=== PATIENT | female | born 1940 | race Caucasian/White ===

== ENCOUNTER 2017-07-15 12:57 | Outpatient (CLI) | payer MEDICARE, OTHER ==
--- NOTE | 2017-07-15 16:44 | Ultrasound Report ---
PELVIC ULTRASOUND: 07/15/2017 CLINICAL INDICATION: Left-sided pain. Transabdominal pelvic ultrasound performed for global evaluation. Transvaginal pelvic ultrasound performed for detailed evaluation. Real-time scanning performed and static images obtained. FINDINGS: The uterus is anteverted, measuring 6.6 x 3.0 x 1.9 cm. The endometrium is thickened for a postmenopausal patient, measuring 11 mm. A complex nabothian cyst is noted in the cervix. The ovaries appear unremarkable, each measuring 1.6 x 1.3 x 1.0 cm. No free fluid is present. IMPRESSION: THICKENED ENDOMETRIUM FOR A POSTMENOPAUSAL PATIENT. CORRELATION WITH POSTMENOPAUSAL BLEEDING IS RECOMMENDED. COMPLEX NABOTHIAN CYST. TD: 07/15/2017 16:43 ZOE
== END 2017-07-15 12:58 | disposition home or self-care (01) ==
LOC: DI 12:57
PROVIDERS: ATTEND Family Medicine
DX: R10.9 Unspecified abdominal pain (principal); N88.8 Other specified noninflammatory disorders of cervix uteri; Z78.0 Asymptomatic menopausal state
CPT/HCPCS: 76830; 76856

== ENCOUNTER 2017-07-21 10:39 | Outpatient (CLI) | payer MEDICARE, OTHER ==
[2017-07-21 19:16] LABS: BASOPHILS % (AUTO) 0.8 %; EOSINOPHILS # (AUTO) 0.2 10^3/uL (0.0-0.7); LYMPHOCYTES % (AUTO) 34.8 %; MEAN CORPUSCULAR HEMOGLOBIN 28.5 pg (27.0-31.0); MEAN CORPUSCULAR HGB CONC 32.4 g/dL (32.0-36.0); MEAN CORPUSCULAR VOLUME 87.8 fL (81.0-99.0); MEAN PLATELET VOLUME 9.3 fL (7.9-10.8); MONOCYTES # (AUTO) 0.5 10^3/uL (0.0-1.0); MONOCYTES % (AUTO) 8.7 %; NEUTROPHILS % (AUTO) 52.7 %; PLT - PLATELET COUNT 220 10^3/uL (130-450); RED BLOOD COUNT 5.26 10^6/uL (4.20-5.40); RED CELL DISTRIBUTION WIDTH 14.6 % (12.0-15.0); WHITE BLOOD COUNT 5.6 x10^3/uL (4.8-10.8)
[2017-07-21 19:39] LABS: % IRON SATURATION 24 % (20-50); ALBUMIN/GLOBULIN RATIO 1.4 (1.0-2.2); ALKALINE PHOSPHATASE 93 IU/L (42-121); ALT ALANINE AMINOTRANSFERASE 33 IU/L (10-60); AST ASPARTATE AMINOTRANSFERASE 26 IU/L (10-42); BILIRUBIN,TOTAL 0.9 mg/dL (0.2-1.0); BUN - BLOOD UREA NITROGEN 14 mg/dL (6-20); CALCIUM 8.8 mg/dL (8.5-10.3); CARBON DIOXIDE - CO2 23 mmol/L (21-32); CHLORIDE 109 mmol/L (101-111); CHOL/HDL RATIO 3.9 (<4.4); CHOLESTEROL 174 mg/dL; CREATININE 0.9 mg/dL (0.4-1.0); GFR - MDRD 61 (>89); GLUCOSE 96 mg/dL (70-100); HDL CHOLESTEROL 45 mg/dL; IRON 76 ug/dL (28-170); LDL CHOLESTEROL,CALCULATED 87 mg/dL; LDL/HDL RATIO 1.9 (<4.4); SODIUM 140 mmol/L (135-145); TOTAL IRON BINDING CAPACITY 319 ug/dL (250-450); TOTAL PROTEIN 6.9 g/dL (6.7-8.2); TRANSFERRIN 228 mg/dL (192-382); VLDL CHOLESTEROL 42 mg/dL
[2017-07-21 19:43] LABS: THYROID STIMULATING HORMONE 3.55 uIU/mL (0.34-5.60)
[2017-07-21 19:49] LABS: FERRITIN 110.7 ng/mL (11.0-306.8)
== END 2017-07-21 10:40 | disposition home or self-care (01) ==
LOC: LAB.WCP 10:39
PROVIDERS: ATTEND Family Medicine
DX: D50.9 Iron deficiency anemia, unspecified (principal); R53.83 Other fatigue; R10.9 Unspecified abdominal pain; R60.9 Edema, unspecified; R03.0 Elevated blood-pressure reading, without diagnosis of hypertension; Z13.220 Encounter for screening for lipoid disorders
CPT/HCPCS: 36415; 80053; 80061; 82728; 83540; 83721; 84443; 84466; 85025

== ENCOUNTER 2017-08-24 11:16 | Day surgery (SDC) | payer MEDICARE, OTHER ==
[2017-08-24] MEDS ORDERED: LACTATED RINGERS 1,000 ML IV ONE (12:00)
[2017-08-24 12:16] LABS: BILIRUBIN,URINE NEGATIVE (NEGATIVE); GLUCOSE, URINE (UA) NEGATIVE (NEGATIVE); KETONES,URINE (UA) NEGATIVE (NEGATIVE); LEUKOCYTE ESTERASE, URINE NEGATIVE (NEGATIVE); NITRITE,URINE NEGATIVE (NEGATIVE); OCCULT BLOOD,URINE NEGATIVE (NEGATIVE); PROTEIN,URINE NEGATIVE (NEGATIVE); UROBILINOGEN,URINE 0.2 (NORMAL) E.U./dL (NORMAL)
[2017-08-24 12:18] LABS: CLARITY,URINE CLEAR (CLEAR); HCG UR QUAL NEGATIVE
[2017-08-24 12:42] LABS: BASOPHILS % (AUTO) 0.6 %; EOSINOPHILS # (AUTO) 0.1 10^3/uL (0.0-0.7); EOSINOPHILS % (AUTO) 1.7 %; HGB - HEMOGLOBIN 15.6 g/dL (12.0-16.0); LYMPHOCYTES # (AUTO) 1.8 10^3/uL (1.5-3.5); LYMPHOCYTES % (AUTO) 24.7 %; MEAN CORPUSCULAR HEMOGLOBIN 29.5 pg (27.0-31.0); MEAN CORPUSCULAR VOLUME 86.9 fL (81.0-99.0); MEAN PLATELET VOLUME 8.5 fL (7.9-10.8); MONOCYTES # (AUTO) 0.5 10^3/uL (0.0-1.0); MONOCYTES % (AUTO) 6.8 %; NEUTROPHILS # (AUTO) 4.8 10^3/uL (1.5-6.6); NEUTROPHILS % (AUTO) 66.2 %; PLT - PLATELET COUNT 248 10^3/uL (130-450); RED BLOOD COUNT 5.28 10^6/uL (4.20-5.40); RED CELL DISTRIBUTION WIDTH 13.7 % (12.0-15.0); WHITE BLOOD COUNT 7.2 x10^3/uL (4.8-10.8)
[2017-08-24] MEDS ORDERED: BUPIVACAINE 0.5%-EPI 1:200000 PF 30 ML VIAL ONE (14:20)
[2017-08-24] MEDS ORDERED: BUPIVACAINE 0.5%-EPI 1:200000 PF 30 ML VIAL IM ONE (14:30)
[2017-08-24] MEDS ORDERED: DEXAMETHASONE 4 MG/ML VIAL IVP ONE (14:30)
[2017-08-24] MEDS ORDERED: LIDOCAINE-MPF 2% 5 ML VIAL IM ONE (14:30)
[2017-08-24] MEDS ORDERED: PROPOFOL 200 MG/20 ML VIAL IVP ONE (14:30)
[2017-08-24] MEDS ORDERED: ONDANSETRON 4 MG/2 ML VIAL IVP ONE (14:30)
[2017-08-24] MEDS ORDERED: MIDAZOLAM 2 MG/2 ML VIAL IVP ONE (14:30)
[2017-08-24] MEDS ORDERED: KETAMINE 500 MG/10 ML VIAL IVP ONE (14:30)
--- NOTE | 2017-08-24 14:48 | OPERATIVE REPORT ---
Operative Report - General Procedure Date: 08/24/17 Pre-Op Diagnosis: Thick Endometrium Procedure Performed: Hysteroscope w Myosure Polypectomy Post Op Diagnosis: Await Path - Procedure Note Primary Surgeon: MD Marce Anesthesia Provider: Phi Anesthesia Technique: General LMA, MAC Complications: None
[2017-08-24 17:00] VITALS: BP 147/71
--- NOTE | 2017-08-25 16:10 | OPERATIVE REPORT ---
DATE OF SERVICE: 08/24/2017 Physician: Baltazar Zheng MD PREOPERATIVE DIAGNOSIS: Thick endometrium documented on ultrasound (11 mm); stenotic endocervix and failed prior office biopsy. POSTOPERATIVE DIAGNOSIS: Await pathology of the same. PROCEDURE PERFORMED: Hysteroscopy with MyoSure polypectomy. SURGEON: Baltazar Zheng MD, FACOG ANESTHESIA: Phi, certified nurse transmission and protection engineer. ANESTHESIA TYPE: MAC converted to LMA; 8 mL of paracervical block with 0.5% Marcaine and epinephrine (Marce). PATHOLOGY: Endometrial and shavings and polyp sent to pathology. IV FLUIDS: 500. ESTIMATED BLOOD LOSS: Minimal. URINE OUTPUT: Patient voided prior to procedure. Therefore, intraoperative urine unknown. DRAINS: None. COMPLICATIONS: None. FINDINGS 1. Exam under anesthesia finds a normal-appearing vulva with some atrophy. 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 Cervix is almost completely scarred shut. 2. Hysteroscopic view of the uterine cavity finds a polypoid growth as well as atrophy. Await pathology. TECHNIQUE: Patient was brought to the operating room and placed in the supine position for administration of general anesthesia. She was uneventfully administered MAC. She was moved to the dorsal lithotomy position. Timeout briefing was done per protocol. Single-tooth tenaculum was placed on the anterior cervical lip; 8 mL of 0.5% Marcaine with epinephrine were placed around the cervix in a halo fashion. Patient required LMA at this point and the procedure delayed slightly. Using fine Hegar probe, the endocervical axis was ascertained and the cavity found. Hegar probes were then used to uneventfully dilate to Hegar size 6. The video hysteroscope then was brought to the perineum and uneventfully inserted through the endocervical canal and into the uterine cavity. Photos were taken. Next, the MyoSure device was brought. The polypoid growth was then systematically removed with MyoSure, after which the majority of the endometrial cavity was denuded with the MyoSure. There was a polyp at the lower uterine segment, which was removed and placed in the sample to pathology. The procedure was well tolerated. Total fluid deficit is 125. At this point, Dr. Issa came to the room and performed a colonoscopy. TD: 08/24/2017 15:05
--- NOTE | 2017-08-25 16:10 | OPERATIVE REPORT ---
DATE OF SERVICE: 08/24/2017 Physician: Baltazar Zheng MD PREOPERATIVE DIAGNOSIS: Thick endometrium documented on ultrasound (11 mm); stenotic endocervix and failed prior office biopsy EMB. POSTOPERATIVE DIAGNOSIS: Await pathology of the same. PROCEDURE PERFORMED: Hysteroscopy with MyoSure polypectomy. SURGEON: Baltazar Zheng MD, FACOG ANESTHESIA: Phi, certified nurse harness preparer. ANESTHESIA TYPE: MAC converted to LMA; 8 mL of paracervical block with 0.5% Marcaine and epinephrine (Marce). PATHOLOGY: Endometrial and shavings and polyp sent to pathology. IV FLUIDS: 500. ESTIMATED BLOOD LOSS: Minimal. URINE OUTPUT: Patient voided prior to procedure. Therefore, intraoperative urine unknown. DRAINS: None. COMPLICATIONS: None. FINDINGS 1. Exam under anesthesia finds a normal-appearing vulva with some atrophy. 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 Cervix is almost completely scarred shut. 2. Hysteroscopic view of the uterine cavity finds a polypoid growth as well as atrophy. Await pathology. TECHNIQUE: Patient was brought to the operating room and placed in the supine position for administration of general anesthesia. She was uneventfully administered MAC. She was moved to the dorsal lithotomy position. Timeout briefing was done per protocol. Single-tooth tenaculum was placed on the anterior cervical lip; 8 mL of 0.5% Marcaine with epinephrine were placed around the cervix in a halo fashion. Patient required LMA at this point and the procedure delayed slightly. Using fine Hegar probe, the endocervical axis was ascertained and the cavity found. Hegar probes were then used to uneventfully dilate to Hegar size 6. The video hysteroscope then was brought to the perineum and uneventfully inserted through the endocervical canal and into the uterine cavity. Photos were taken. Next, the MyoSure device was introduced into the uterine cavity.. The polypoid growth was then systematically removed with MyoSure, after which the majority of the endometrial cavity was denuded with the MyoSure. There was a polyp at the lower uterine segment, which was removed and placed in the sample to pathology. The procedure was well tolerated. Total fluid deficit is 125. At this point, Dr. Issa came to the room and performed a colonoscopy. TD: 08/24/2017 15:05 ZOE
== END 2017-08-24 11:17 | disposition home or self-care (01) ==
LOC: SDS 11:16
PROVIDERS: ATTEND Surgery
PROC: 0DJD8ZZ Inspection of Lower Intestinal Tract, Via Natural or Artificial Opening Endoscopic (ICD-10-PCS; principal; 2017-08-24 12:15)
PROC: 0UB98ZX Excision of Uterus, Via Natural or Artificial Opening Endoscopic, Diagnostic (ICD-10-PCS; 2017-08-24 12:15)
DX: Z12.11 Encounter for screening for malignant neoplasm of colon (principal); K57.30 Diverticulosis of large intestine without perforation or abscess without bleeding; K64.8 Other hemorrhoids; N84.0 Polyp of corpus uteri; Z80.0 Family history of malignant neoplasm of digestive organs
CPT/HCPCS: 36415; 58558; 81003; 81025; 85025; G0105; J7120; 81001; 87086; 88305

== ENCOUNTER 2017-09-08 10:06 | Outpatient (CLI) | payer MEDICARE, OTHER ==
--- NOTE | 2017-09-10 10:57 | Mammography Report ---
Procedure Date: 09/08/2017 Accession Number: [id number] / [id number] Procedure: [facility] - Screening Mammo Dig Bilat CPT Code: FULL RESULT: EXAM: Screening Mammo Dig Bilat DATE: 09/08/2017 10:32 AM CLINICAL HISTORY: 76-year-old nulliparous patient for screening TECHNIQUE: Bilateral CC and MLO views were obtained. COMPARISON: The patient reports having had a mammogram over 25 years ago, at an unknown facility. If records in your office indicate where this was performed, we would be happy to try to obtain it for direct comparison. Otherwise, this will serve as a new baseline. FINDINGS: The breasts demonstrate scattered fibroglandular densities bilaterally. A few coarse, typically benign calcifications are present. In the right upper central breast, there is a possible obscured nodule. Further evaluation with spot compression views and possible ultrasound is recommended. No mammographically suspicious findings are appreciated in the left breast. IMPRESSION: Incomplete examination RECOMMENDATION: Additional evaluation as above. BIRADS CATEGORY 0: Incomplete examination STANDARD QUALIFYING STATEMENTS: 1. This examination was reviewed with the aid of Computer-Aided Detection (CAD). 2. A negative or benign imaging report should not delay biopsy if clinically suspicious findings are present. Consider surgical consultation if warrented. More than 5% of cancers are not identified by imaging. 3. Dense breasts may obscure an underlying neoplasm.
== END 2017-09-08 10:07 | disposition home or self-care (01) ==
LOC: DI.N 10:06
PROVIDERS: ATTEND Obstetrics & Gynecology
DX: Z12.31 Encounter for screening mammogram for malignant neoplasm of breast (principal); R92.8 Other abnormal and inconclusive findings on diagnostic imaging of breast
CPT/HCPCS: 77067

== ENCOUNTER 2017-10-05 13:23 | Outpatient (CLI) | payer MEDICARE, OTHER ==
--- NOTE | 2017-10-05 14:50 | Mammography Report ---
Procedure Date: 10/05/2017 Accession Number: [id number] / [id number] Procedure: [facility] - Diag Special Views Dig RT CPT Code: FULL RESULT: EXAM: Diag Special Views Dig RT DATE: 10/05/2017 1:53 PM CLINICAL HISTORY: 76-year-old female who recently presented for a baseline mammogram after having had mammograms 425 years. The patient is recalled today based on an asymmetry in the right upper central breast. TECHNIQUE: Right CC, MLO and ML views are obtained with spot compression in the CC and MLO projection. COMPARISON: 09/08/2017. FINDINGS: The breasts demonstrate scattered fibroglandular densities bilaterally. Previously seen asymmetry concerning for an obscured nodule resolves with spot compression. A few coarse typically benign calcifications are again seen. No mammographically suspicious findings are appreciated. IMPRESSION: Benign findings RECOMMENDATION: Recommend routine annual Screening mammography unless otherwise clinically indicated. BIRADS CATEGORY 2: Benign findings STANDARD QUALIFYING STATEMENTS: 1. This examination was reviewed with the aid of Computer-Aided Detection (CAD). 2. A negative or benign imaging report should not delay biopsy if clinically suspicious findings are present. Consider surgical consultation if warrented. More than 5% of cancers are not identified by imaging. 3. Dense breasts may obscure an underlying neoplasm.
== END 2017-10-05 13:24 | disposition home or self-care (01) ==
LOC: DI 13:23
PROVIDERS: ATTEND Obstetrics & Gynecology
DX: R92.8 Other abnormal and inconclusive findings on diagnostic imaging of breast (principal)

== ENCOUNTER 2022-04-09 14:23 | Outpatient (CLI) | payer MEDICARE, OTHER | END 2022-04-09 14:24 | disposition home or self-care (01) | LOC: MAC.MOP 14:23 | PROVIDERS: ATTEND Physician Assistant | DX: G45.9 Transient cerebral ischemic attack, unspecified (principal) | CPT/HCPCS: 93246 ==

== ENCOUNTER → 2022-05-02 | Outpatient (CLI) | payer MEDICARE, OTHER | LOC: MAC.INF 10:30 | PROVIDERS: ATTEND Physician Assistant | DX: G45.9 Transient cerebral ischemic attack, unspecified (principal); I47.1 Supraventricular tachycardia; I49.1 Atrial premature depolarization; I49.3 Ventricular premature depolarization | CPT/HCPCS: 93248 ==

== ENCOUNTER 2023-08-14 08:00 | Outpatient (CLI) | payer MEDICARE, OTHER ==
[2023-08-14 22:35] LABS: BACTERIAL VAGINOSIS DNA NEGATIVE (NEGATIVE); CANDIDA GLABRATA DNA NEGATIVE (NEGATIVE); CANDIDA GROUP DNA NEGATIVE (NEGATIVE); CANDIDA KRUSEI DNA NEGATIVE (NEGATIVE); TRICHOMONAS VAGINALIS DNA NEGATIVE (NEGATIVE)
== END 2023-08-14 23:59 | disposition home or self-care (01) ==
LOC: LAB.WCP 08:00
PROVIDERS: ATTEND Physician Assistant
DX: N89.8 Other specified noninflammatory disorders of vagina (principal)
CPT/HCPCS: 81514

== ENCOUNTER 2023-11-05 09:23 | Outpatient (CLI) | payer MEDICARE, OTHER ==
--- NOTE | 2023-11-05 13:28 | XRAY Report ---
PROCEDURE: Knee 4+V RT INDICATIONS: KNEE PAIN, RIGHT TECHNIQUE: 4 views of the knee(s) were acquired. COMPARISON: None. FINDINGS: Bones: No fractures or dislocations. No suspicious bony lesions. Tricompartmental joint space amanda rowing with associated osteophytosis. Soft tissues: No knee joint effusion. No suspicious soft tissue calcifications or masses. IMPRESSION: No acute bony abnormality. Mild to moderate tricompartmental osteoarthritis. Kellgren-Joe scale of osteoarthritis: 2. Reviewed by: Iftikhar Mansfield MD on 11/05/2023 1:26 PM PDT Approved by: Iftikhar Mansfield MD on 11/05/2023 1:26 PM PDT Station ID: [id number]
== END 2023-11-05 09:24 | disposition home or self-care (01) ==
LOC: DI 09:23
PROVIDERS: ATTEND Physician Assistant
DX: M17.11 Unilateral primary osteoarthritis, right knee (principal)